=== PATIENT | male | born 1995 | race Hispanic/Latino ===

== ENCOUNTER 2018-09-30 16:54 | Observation (INO) | payer SELFPAY ==
[2018-09-30 17:38] LABS: BASO % 0.6 % (0.0-2.0); EOS # 0.1 K/uL (0.0-0.7); EOS % 0.8 % (0.0-4.0); HEMOGLOBIN 14.7 g/dL (12.0-18.0); LYMPH # 1.6 K/uL (1.0-4.3); LYMPH % 22.9 % (20.0-40.0); MEAN CELL VOLUME 92.1 fL (80.0-94.0); MEAN CORPUSCULAR HEMOGLOBIN 32.4 pg (27.0-31.0); MEAN CORPUSCULAR HGB CONC 35.1 g/dL (33.0-37.0); MEAN PLATELET VOLUME 7.9 fL (7.2-11.7); MONO # 1.1 K/uL (0.0-0.8); MONO % 16.3 % (0.0-10.0); NEUT # 4.2 K/uL (1.8-7.0); NEUT % 59.4 % (50.0-75.0); NRBC % 0.2 % (0.0-2.0); RBC 4.55 Mil/uL (4.40-5.90); RED CELL DISTRIBUTION WIDTH 12.6 % (11.5-14.5)
[2018-09-30 18:00] LABS: ALB/GLOB RATIO 1.4 (1.0-2.1); ALBUMIN 4.5 g/dL (3.5-5.0); ALT/SGPT 27 U/L (21-72); AST/SGOT 38 U/L (17-59); BLOOD UREA NITROGEN 12 mg/dL (9-20); CALCIUM 9.1 mg/dl (8.6-10.4); GFR NON-AFRICAN AMERICAN > 60
[2018-09-30] MEDS ORDERED: Piperacillin/Tazobact 3.375 GM in Sodium Chloride 100 ML IVPB STA (18:11)
[2018-09-30] MEDS ORDERED: Piperacillin/Tazobact 3.375 gm 100 ML IVPB ONE (18:20)
[2018-09-30] MEDS ORDERED: Vancomycin 1 GM 1 GM/250 ML BAG IVPB ONE (18:20)
[2018-09-30 18:35] LABS: BARBITURATES, UR NEGATIVE (NEGATIVE); BENZODIAZEPINES, UR NEGATIVE (NEGATIVE); PHENCYCLIDINE, UR NEGATIVE (NEGATIVE)
--- NOTE | 2018-09-30 18:40 | C.PDOC ---
History Of Present Illness 23 year old male presents to ED with complaint of increased swelling and redness to the left arm. Patient states he injected heroin into the dorsal aspect of his left hand and noticed over a day and half ago that the swelling was increased and moved shelter up his forearm. Patient denies fever. Time Seen by Provider: 09/30/18 17:07 Chief Complaint (Nursing): Upper Extremity Problem/Injury History Per: Patient History/Exam Limitations: no limitations Onset/Duration Of Symptoms: Days (1) Current Symptoms Are (Timing): Still Present Past Medical History Reviewed: Historical Data, Nursing Documentation, Vital Signs Vital Signs: Last Vital Signs Temp 98.6 F 09/30/18 17:00 Pulse 97 H 09/30/18 17:00 Resp 20 09/30/18 17:00 BP 128/78 09/30/18 17:00 Pulse Ox 97 09/30/18 17:00 - Medical History PMH: No Chronic Diseases Surgical History: No Surg Hx Family History: States: Unknown Family Hx - Social History Hx Alcohol Use: No Hx Substance Use: Yes - Immunization History Hx Tetanus Toxoid Vaccination: No Hx Influenza Vaccination: No Hx Pneumococcal Vaccination: No Review Of Systems Constitutional: Negative for: Fever, Chills, Weakness Cardiovascular: Negative for: Chest Pain Respiratory: Negative for: Cough, Shortness of Breath Gastrointestinal: Negative for: Nausea, Vomiting Musculoskeletal: Positive for: Arm Pain (swelling and redness on the left arm) Neurological: Negative for: Weakness, Numbness, Dizziness Physical Exam - Physical Exam Appears: Well, Non-toxic, No Acute Distress Skin: Normal Color, Warm, Dry Head: Atraumatic, Normacephalic Neck: Normal ROM, Supple Chest: Symmetrical, No Deformity Cardiovascular: Rhythm Regular Respiratory: Normal Breath Sounds Gastrointestinal/Abdominal: Soft, No Tenderness Extremity: Tenderness (Left upper forearm and wrist), Capillary Refill (<2 seconds), Swelling (redness to the left upper extremity in the distal forearm portion), Other (multiple trackmarks along the upper extremities bilaterally) Extremity: Left: Limited ROM To Joint (minimal ROM to the wrist secondary to pain and swelling) Pulses: Left Radial: Normal, Right Radial: Normal Neurological/Psych: Oriented x3, Normal Speech, Normal Cognition ED Course And Treatment - Laboratory Results Result Diagrams: 09/30/18 17:32 09/30/18 17:32 Lab Results: Total Bilirubin 0.6 mg/dL (0.2-1.3) 09/30/18 17:32 AST 38 U/L (17-59) 09/30/18 17:32 ALT 27 U/L (21-72) 09/30/18 17:32 Alkaline Phosphatase 91 U/L (38-126) 09/30/18 17:32 Total Protein 7.7 g/dL (6.3-8.3) 09/30/18 17:32 Albumin 4.5 g/dL (3.5-5.0) 09/30/18 17:32 Globulin 3.2 gm/dL (2.2-3.9) 09/30/18 17:32 Albumin/Globulin Ratio 1.4 (1.0-2.1) 09/30/18 17:32 O2 Sat by Pulse Oximetry: 97 (RA) Progress Note: 1810: Spoke with . Agreed to accept patient. Medical Decision Making Medical Decision Making: Impression: Swelling and erythema to the Left forearm and wrist Plan: Left Hand X-ray and left wrist X-ray Labs ordered with drug screen and blood culture Patient given vancomycin IVPB and Zosyn IVPB - Scribe Statement The provider has reviewed the documentation as recorded by the Scribe (Anu Martinez) All medical record entries made by the Scribe were at my direction and personally dictated by me. I have reviewed the chart and agree that the record accurately reflects my personal performance of the history, physical exam, medical decision making, and the department course for this patient. I have also personally directed, reviewed, and agree with the discharge instructions and disposition.
[2018-09-30 18:45] LABS: OPIATES, UR POSITIVE (NEGATIVE)
--- NOTE | 2018-09-30 19:44 | CP.PCM.HP ---
<Richy Bansal - Last Filed: 10/01/18 00:35> History of Present Illness - History of Present Illness History of Present Illness: PGY-1 History and Physical [address] Loyola Patient is a 23 year old male with no known PMHx, social history positive for IV heroin and cocaine use, who presents with 2 days of left hand pain and swelling. Patient states being clean for 6 months and relapsing 2 days ago (injected into left hand at area of swelling), prior to noticing his current presenting sympt oms. Patient denies any history of cellulitis or skin abscess. He states first noticing pain 2 days ago, but today the pain and swelling became worse, prompting patient to present to ER. Pt endorses some numbness and tingling in fingers though does still have some sensation. Pain extends proximally to wrist, but not proximally toward the elbow. He does state having some difficulty moving his wrist. Pt currently denies withdrawal symptoms including n/v/d, denies palpitations, chest pain, headache, dizziness. Medical Hx: Denies Surgical Hx: Denies Allergies: Denies Social: IV drug user (heroin, cocaine), 1ppd smoker, denies ETOH. Moved to from [place] today. Currently unemployed. Family Hx: Denies Medications: None PMD: None Code: Full Code Present on Admission - Present on Admission Any Indicators Present on Admission: No Review of Systems - Constitutional Constitutional: absent: Chills, Fatigue, Fever - EENT Nose/Mouth/Throat: absent: Nasal Congestion, Post Nasal Drip - Cardiovascular Cardiovascular: absent: Chest Pain, Dyspnea, Palpitations - Respiratory Respiratory: absent: Cough, Dyspnea, Wheezing - Gastrointestinal Gastrointestinal: absent: Abdominal Pain, Diarrhea, Nausea, Vomiting - Genitourinary Genitourinary: absent: Dysuria, Hematuria - Musculoskeletal Musculoskeletal: Limited Range of Motion (L wrist decreased ROM). absent: Myalgias - Neurological Neurological: Numbness, Paresthesias. absent: Confusion, Dizziness, Radicular Pain - Psychiatric Psychiatric: absent: Anxiety, Depression - Hematologic/Lymphatic Hematologic: absent: Easy Bleeding, Easy Bruising Past Patient History - Past Social History Smoking Status: Heavy Smoker > 10 Cigarettes Daily - PSYCHIATRIC Hx Substance Use: Yes - SURGICAL HISTORY Hx Surgeries: No Meds Allergies/Adverse Reactions: Allergies Allergy/AdvReac Type Severity Reaction Status Date / Time No Known Allergies Allergy Verified 09/30/18 17:04 Physical Exam - Constitutional Appears: Non-toxic, No Acute Distress - Head Exam Head Exam: ATRAUMATIC, NORMOCEPHALIC - Eye Exam Eye Exam: EOMI, Normal appearance - ENT Exam ENT Exam: Mucous Membranes Moist - Respiratory Exam Respiratory Exam: Clear to Auscultation Bilateral, NORMAL BREATHING PATTERN. absent: Rhonchi, Wheezes - Cardiovascular Exam Cardiovascular Exam: REGULAR RHYTHM, +S1, +S2 - GI/Abdominal Exam GI & Abdominal Exam: Normal Bowel Sounds, Soft. absent: Tenderness - Extremities Exam Additional comments: L hand and wrist erythema and swelling. Tender to palpation. Decreased L wrist ROM. Reported decreased, but still intact sensation of L hand and fingers. Distal UE pulses intact b/l. - Neurological Exam Neurological exam: Alert, CN II-XII Intact, Oriented x3 - Psychiatric Exam Psychiatric exam: Normal Affect, Normal Mood - Skin Skin Exam: Dry, Intact Results - Vital Signs Recent Vital Signs: Last Vital Signs Temp 98.6 F 09/30/18 17:00 Pulse 97 H 09/30/18 17:00 Resp 20 09/30/18 17:00 BP 128/78 09/30/18 17:00 Pulse Ox 97 09/30/18 18:55 - Labs Result Diagrams: 09/30/18 17:32 09/30/18 17:32 Labs: Laboratory Results - last 24 hr 09/30/18 09/30/18 09/30/18 17:32 17:32 18:14 WBC 7.0 RBC 4.55 Hgb 14.7 Hct 41.9 MCV 92.1 MCH 32.4 H MCHC 35.1 RDW 12.6 Plt Count 331 MPV 7.9 Neut % (Auto) 59.4 Lymph % (Auto) 22.9 Divide % (Auto) 16.3 H Eos % (Auto) 0.8 Baso % (Auto) 0.6 Neut # (Auto) 4.2 Lymph # (Auto) 1.6 Divide # (Auto) 1.1 H Eos # (Auto) 0.1 Baso # (Auto) 0.0 Sodium 136 Potassium 3.5 L Chloride 96 L Carbon Dioxide 30 Anion Gap 13 BUN 12 Creatinine 0.9 Est GFR ( Amer) > 60 Est GFR (Non-Af Amer) > 60 Random Glucose 107 Calcium 9.1 Total Bilirubin 0.6 AST 38 ALT 27 Alkaline Phosphatase 91 Total Protein 7.7 Albumin 4.5 Globulin 3.2 Albumin/Globulin Ratio 1.4 Urine Opiates Screen Positive H Urine Methadone Screen Negative Ur Barbiturates Screen Negative Ur Phencyclidine Scrn Negative Ur Amphetamines Screen Negative U Benzodiazepines Scrn Negative U Oth Cocaine Metabols Positive H U Cannabinoids Screen Positive H Assessment & Plan - Assessment and Plan (Free Text) Assessment: Left upper extremity cellulitis likely 2/2 IVDU. Consider possible abscess. -Vancomycin 1gm IV Q12 -Rocephin 1 gm IV daily -Swelling demarcated with surgical marker - follow changes daily -Toradol 15 mg IV Q6 prn mod pain -CXR L hand/wrist 09/30 - visible soft tissue edema without other obvious deformity, f/u official read History IVDU -Patient not reporting withdrawal sx - no intervention at this time as patient has just relapse, likely will not withdraw at this time PPx: DVT ppx - Heparin 5000 U SC Q8 Assessment and plan d/w Dr. Milla Bansal, PGY-1 <Kasi Loyola P - Last Filed: 10/01/18 08:16> Results - Vital Signs Recent Vital Signs: Last Vital Signs Temp 97.4 F L 10/01/18 07:24 Pulse 75 10/01/18 07:24 Resp 20 10/01/18 07:24 BP 116/71 10/01/18 07:24 Pulse Ox 97 10/01/18 07:24 - Labs Result Diagrams: 10/01/18 06:30 10/01/18 06:30 Labs: Laboratory Results - last 24 hr 09/30/18 09/30/18 09/30/18 17:32 17:32 18:14 WBC 7.0 RBC 4.55 Hgb 14.7 Hct 41.9 MCV 92.1 MCH 32.4 H MCHC 35.1 RDW 12.6 Plt Count 331 MPV 7.9 Neut % (Auto) 59.4 Lymph % (Auto) 22.9 Divide % (Auto) 16.3 H Eos % (Auto) 0.8 Baso % (Auto) 0.6 Neut # (Auto) 4.2 Lymph # (Auto) 1.6 Divide # (Auto) 1.1 H Eos # (Auto) 0.1 Baso # (Auto) 0.0 Sodium 136 Potassium 3.5 L Chloride 96 L Carbon Dioxide 30 Anion Gap 13 BUN 12 Creatinine 0.9 Est GFR ( Amer) > 60 Est GFR (Non-Af Amer) > 60 Random Glucose 107 Calcium 9.1 Total Bilirubin 0.6 AST 38 ALT 27 Alkaline Phosphatase 91 Total Protein 7.7 Albumin 4.5 Globulin 3.2 Albumin/Globulin Ratio 1.4 Urine Opiates Screen Positive H Urine Methadone Screen Negative Ur Barbiturates Screen Negative Ur Phencyclidine Scrn Negative Ur Amphetamines Screen Negative U Benzodiazepines Scrn Negative U Oth Cocaine Metabols Positive H U Cannabinoids Screen Positive H 10/01/18 10/01/18 06:30 06:30 WBC 6.7 RBC 4.53 Hgb 14.8 Hct 42.3 MCV 93.4 MCH 32.8 H MCHC 35.1 RDW 12.9 Plt Count 313 MPV 8.6 Neut % (Auto) 62.2 Lymph % (Auto) 19.0 L Divide % (Auto) 17.1 H Eos % (Auto) 1.4 Baso % (Auto) 0.3 Neut # (Auto) 4.2 Lymph # (Auto) 1.3 Divide # (Auto) 1.1 H Eos # (Auto) 0.1 Baso # (Auto) 0.0 Sodium 136 Potassium 3.4 L Chloride 98 Carbon Dioxide 27 Anion Gap 14 BUN 11 Creatinine 1.0 Est GFR ( Amer) > 60 Est GFR (Non-Af Amer) > 60 Random Glucose 109 Calcium 9.1 Total Bilirubin 0.8 AST 22 ALT 31 Alkaline Phosphatase 82 Total Protein 7.2 Albumin 4.2 Globulin 3.0 Albumin/Globulin Ratio 1.4 Urine Opiates Screen Urine Methadone Screen Ur Barbiturates Screen Ur Phencyclidine Scrn Ur Amphetamines Screen U Benzodiazepines Scrn U Oth Cocaine Metabols U Cannabinoids Screen Attending/Attestation - Attestation I have personally seen and examined this patient.: Yes I have fully participated in the care of the patient.: Yes I have reviewed all pertinent clinical information: Yes Notes (Text): 10/01/18 08:15 left arm/hand cellulitis, no pointing or fluctuation noticed. IV vanco/rocephin, toradol, counselled about IVDA/substance abuse, he had been clean for 6 months, started 2 days prior so unlikely to go into withdrawal.
[2018-10-01 06:54] LABS: ALB/GLOB RATIO 1.4 (1.0-2.1); ALBUMIN 4.2 g/dL (3.5-5.0); ALT/SGPT 31 U/L (21-72); AST/SGOT 22 U/L (17-59); BLOOD UREA NITROGEN 11 mg/dL (9-20); CALCIUM 9.1 mg/dl (8.6-10.4); GFR NON-AFRICAN AMERICAN > 60
[2018-10-01 07:01] LABS: BASO % 0.3 % (0.0-2.0); EOS # 0.1 K/uL (0.0-0.7); EOS % 1.4 % (0.0-4.0); HEMOGLOBIN 14.8 g/dL (12.0-18.0); LYMPH # 1.3 K/uL (1.0-4.3); MEAN CELL VOLUME 93.4 fL (80.0-94.0); MEAN CORPUSCULAR HEMOGLOBIN 32.8 pg (27.0-31.0); MEAN CORPUSCULAR HGB CONC 35.1 g/dL (33.0-37.0); MEAN PLATELET VOLUME 8.6 fL (7.2-11.7); MONO # 1.1 K/uL (0.0-0.8); MONO % 17.1 % (0.0-10.0); NEUT # 4.2 K/uL (1.8-7.0); NEUT % 62.2 % (50.0-75.0); NRBC % 0.1 % (0.0-2.0); RBC 4.53 Mil/uL (4.40-5.90); RED CELL DISTRIBUTION WIDTH 12.9 % (11.5-14.5); WHITE BLOOD COUNT 6.7 K/uL (4.8-10.8)
[2018-10-01 07:25] VITALS: RESP 20
--- NOTE | 2018-10-01 07:25 | CP.PCM.PN ---
<Marciano Shahid - Last Filed: 10/01/18 18:21> Subjective - Date & Time of Evaluation Date of Evaluation: 10/01/18 Time of Evaluation: 07:25 - Subjective Subjective: Progress note for Hospitalist service Patient seen and examined at bedside. He states that he injected into his left hand 2 day ago and subsequently developed swelling, redness and pain to his left hand and forearm. He admits to using IV heroin and cocaine, after he recently relapsed 2 days ago. He states he used about 2 bags at that time. He started using IV heroin and cocaine at age 20, max of 10 bags daily. He denies fevers, chills, chest pain, shortness of breath, headache, dizziness, palpitation, abdominal pain, nausea, vomiting, diarrhea, constipation, dysuria, leg pain. He denies prior infections from IV drug use in the past. Objective - Vital Signs/Intake and Output Vital Signs (last 24 hours): Temp Pulse Resp BP Pulse Ox 97.4 F L 75 20 116/71 97 10/01/18 07:24 10/01/18 07:24 10/01/18 07:24 10/01/18 07:24 10/01/18 07:24 Intake and Output: 10/01/18 10/01/18 06:59 18:59 Intake Total 200 Balance 200 - Medications Medications: Current Medications Acetaminophen (Tylenol 325mg Tab) 650 mg PO Q6 PRN PRN Reason: Pain, Mild (1-3) Heparin Sodium (Porcine) (Heparin) 5,000 units SC Q8 [facility] Last Admin: 10/01/18 06:45 Dose: 5,000 units Ceftriaxone Sodium 1 gm/ (Sodium Chloride) 100 mls @ 100 mls/hr IVPB DAILY RI[facility]; Protocol Vancomycin HCl 1,000 mg/ (Sodium Chloride) 250 mls @ 166.6 mls/hr IVPB Q12H RILEY; Protocol Last Admin: 10/01/18 06:46 Dose: 166.6 mls/hr Ketorolac Tromethamine (Toradol) 15 mg IVP Q6 PRN PRN Reason: Pain, moderate (4-7) Pantoprazole Sodium (Protonix Ec Tab) 40 mg PO DAILY RILEY - Labs Labs: 10/01/18 06:30 10/01/18 06:30 - Constitutional Appears: Non-toxic, No Acute Distress - Head Exam Head Exam: ATRAUMATIC, NORMOCEPHALIC - Eye Exam Eye Exam: EOMI, PERRL - ENT Exam ENT Exam: Mucous Membranes Moist - Neck Exam Neck Exam: Full ROM. absent: Tenderness - Respiratory Exam Respiratory Exam: Clear to Ausculation Bilateral, NORMAL BREATHING PATTERN. absent: Rales, Rhonchi, Wheezes, Respiratory Distress, Stridor - Cardiovascular Exam Cardiovascular Exam: REGULAR RHYTHM, +S1, +S2. absent: Gallop, Rubs, Murmur - GI/Abdominal Exam GI & Abdominal Exam: Soft, Normal Bowel Sounds. absent: Distended, Firm, Gu arding, Rigid, Tenderness, Organomegaly - Extremities Exam Extremities Exam: Normal Capillary Refill. absent: Calf Tenderness, Pedal Edema Additional comments: Left hand: erythema, edema and tenderness of left hand and left forearm, warm to touch, tendons tender to touch Unable to flex and extend wrist secondary to pain and swelling. tenderness along left forearm as well. Right hand and forearm: nontender, nonerythematous, no edema. - Neurological Exam Neurological Exam: Alert, Awake, Oriented x3 - Psychiatric Exam Psychiatric exam: Normal Affect, Normal Mood - Skin Skin Exam: Dry, Intact, Warm Assessment and Plan - Assessment and Plan (Free Text) Assessment: 23 year old male with history of IV drug use who present for cellulitis of left hand and forearm. Plan: Cellulitis of left hand and forearm Concern for tenosynovitis Hand surgery Dr. Villela consulted, help appreciated Recommend IV antibiotics. no surgical intervention at this time. Left hand XR: no fracture/dislocation. no cortical destructive changes. no radioopaque foreign bodies. Left wrist XR: soft tissue swelling, consistent with cellulitis. no radioopaque foreign body noted. Afebrile, no leukocytosis Tylenol 650mg Q6 PRN Rocephin 1g IV Vancomycin 1g BID Toradol 15mg Q6 PRN Blood cultures no growth x24 hours History of IV drug use No withdrawal symptoms at this time Will need further counseling and outpatient follow up for sobriety UDS positive for cocaine, cannabinoids and opiates Hypokalemia K 3.4, repleted Prophylaxis: Heparin 5000 units SC Q8 SCDs Protonix 40mg Regular diet Case discussed with Dr. Celeste Shahid, PGY1 <Leslye Alonso V - Last Filed: 10/01/18 20:00> Objective - Vital Signs/Intake and Output Vital Signs (last 24 hours): Temp Pulse Resp BP Pulse Ox 98.2 F 66 20 103/63 96 10/01/18 15:00 10/01/18 15:00 10/01/18 15:00 10/01/18 15:00 10/01/18 15:00 - Medications Medications: Current Medications Acetaminophen (Tylenol 325mg Tab) 650 mg PO Q6 PRN PRN Reason: Pain, Mild (1-3) Heparin Sodium (Porcine) (Heparin) 5,000 units SC Q8 RILEY Last Admin: 10/01/18 14:19 Dose: 5,000 units Ceftriaxone Sodium 1 gm/ (Sodium Chloride) 100 mls @ 100 mls/hr IVPB DAILY RILEY; Protocol Last Admin: 10/01/18 09:47 Dose: 100 mls/hr Vancomycin HCl 1,000 mg/ (Sodium Chloride) 250 mls @ 166.6 mls/hr IVPB Q12H RILEY; Protocol Last Admin: 10/01/18 18:15 Dose: 166.6 mls/hr Ketorolac Tromethamine (Toradol) 15 mg IVP Q6 PRN PRN Reason: Pain, moderate (4-7) Last Admin: 10/01/18 10:18 Dose: 15 mg Pantoprazole Sodium (Protonix Ec Tab) 40 mg PO DAILY [facility]LEY Last Admin: 10/01/18 09:47 Dose: 40 mg - Labs Labs: 10/01/18 06:30 10/01/18 06:30 Attending/Attestation - Attestation I have personally seen and examined this patient.: Yes I have fully participated in the care of the patient.: Yes I have reviewed all pertinent clinical information, including history, physical exam and plan: Yes Notes (Text): This is a 23-year-old male with prior history of heroin abuse, cocaine abuse noted that he when he was visiting friends and [place] he relapsed and used heroin and cocaine and injected into his left upper extremity. Patient is prior cellulitis and swelling was outlined on admission. Cellulitis over the forearm is improving however it is noted that he is swelling across the back and front of his hands pulses are intact he does have some tenderness over the tendons that was possibly concerning for tenosynovitis we did consult hand surgery for further evaluation he notes no necessary of surgical intervention. We will continue on IV antibiotics to see improvement of this with the swelling and the cellulitis. Patient is fully aware of the adverse effects of heroin and cocaine. Including but not limited to cardiac arrhythmia. He was strongly reemphasize sobriety given his young age. Cellulitis of left hand and forearm Left Hand Pain Left Hand Swelling Assessment/Plan * Hand surgery Dr. Villela consulted, help appreciated * Recommend IV antibiotics. no surgical intervention at this time. * Left hand XR: no fracture/dislocation. no cortical destructive changes. no radioopaque foreign bodies. * Left wrist XR: soft tissue swelling, consistent with cellulitis. no radioopaque foreign body noted. * Afebrile, no leukocytosis * Tylenol 650mg Q6 PRN * Rocephin 1g IV daily * Vancomycin 1g IVPB Q12H * Toradol 15mg Q6 PRN pain * Blood cultures no growth x24 hours History of IV drug use Assessment/Plan * No withdrawal symptoms at this time * Will need further counseling and outpatient follow up for sobriety * UDS positive for cocaine, cannabinoids and opiates Hypokalemia Assessment/Plan * K 3.4, repleted Prophylaxis: * Heparin 5000 units SC Q8 * SCDs * Protonix 40mg PO daily * Regular diet * Bacid 1 tab PO BID
[2018-10-01] MEDS ORDERED: Potassium Chloride 20 mEq ER Tab PO ONE (07:45)
[2018-10-01] MEDS: Pantoprazole 40 mg EC Tab PO SCH (09:47)
--- NOTE | 2018-10-01 09:53 | RAD ---
Date of service: 09/30/2018 PROCEDURE: Left Wrist Radiographs. HISTORY: Left arm cellulitis in a patient with history of IVDA-? FB COMPARISON: Correlation made with radiographs of the left hand FINDINGS: BONES: Normal. No fracture. No obvious cortical destructive changes JOINTS: Normal. No dislocation. SOFT TISSUES: There appears to be mild dorsal soft tissue swelling consistent with this patient's history of cellulitis. No subcutaneous emphysema OTHER FINDINGS: No radiopaque foreign bodies are identified IMPRESSION: Soft tissue swelling consistent with cellulitis. No radiopaque foreign bodies are identified
--- NOTE | 2018-10-01 09:57 | RAD ---
PROCEDURE: Left Hand Radiographs. HISTORY: h/o IVDA - ? FB COMPARISON: Correlation made with concurrent radiographs of the left wrist FINDINGS: BONES: Normal. No fracture. No cortical destructive changes are seen. JOINTS: Normal. No osteoarthritic changes. SOFT TISSUES: There is dorsal soft tissue swelling consistent with this patient's history of cellulitis. No evidence of subcutaneous emphysema OTHER FINDINGS: No radiopaque foreign bodies are identified IMPRESSION: No evidence of acute displaced fracture nor dislocation. No cortical destructive changes. No radiopaque foreign bodies.
--- NOTE | 2018-10-01 12:42 | CP.PCM.CON ---
History of Present Illness - History of Present Illness History of Present Illness: Consult note for Dr. Villela. HPI: 23 year old male with history of IVDA presents with L hand and forearm redness, swelling and pain after injecting drugs to affected area 2 days ago. Patient states pain is 8/10 and located to dorsum of hand. Pain worsens with movement. Denies fever, chills, numbness, tingling, nausea, vomiting, chest pain and shortness of breath. L Wrist XRay shows soft tissue swelling consistent with cellulitis. Denies any previous hx of cellulitis. Medical Hx: Denies Surgical Hx: Denies Allergies: Denies Social: IV drug user (heroin, cocaine), 1ppd smoker for 10 years, denies ETOH. Currently unemployed. Family Hx: Denies Medications: None Review of Systems - Review of Systems All systems: reviewed and no additional remarkable complaints except (as per HPI) Past Patient History - Past Social History Smoking Status: Heavy Smoker > 10 Cigarettes Daily - PSYCHIATRIC Hx Substance Use: Yes - SURGICAL HISTORY Hx Surgeries: No Meds Allergies/Adverse Reactions: Allergies Allergy/AdvReac Type Severity Reaction Status Date / Time No Known Allergies Allergy Verified 09/30/18 17:04 - Medications Medications: Current Medications Acetaminophen (Tylenol 325mg Tab) 650 mg PO Q6 PRN PRN Reason: Pain, Mild (1-3) Heparin Sodium (Porcine) (Heparin) 5,000 units SC Q8 [facility] Last Admin: 10/01/18 06:45 Dose: 5,000 units Ceftriaxone Sodium 1 gm/ (Sodium Chloride) 100 mls @ 100 mls/hr IVPB DAILY [facility]; Protocol Last Admin: 10/01/18 09:47 Dose: 100 mls/hr Vancomycin HCl 1,000 mg/ (Sodium Chloride) 250 mls @ 166.6 mls/hr IVPB Q12H [facility]; Protocol Last Admin: 10/01/18 06:46 Dose: 166.6 mls/hr Ketorolac Tromethamine (Toradol) 15 mg IVP Q6 PRN PRN Reason: Pain, moderate (4-7) Last Admin: 10/01/18 10:18 Dose: 15 mg Pantoprazole Sodium (Protonix Ec Tab) 40 mg PO DAILY [facility] Last Admin: 10/01/18 09:47 Dose: 40 mg Physical Exam - Constitutional Appears: Non-toxic, No Acute Distress, Unkempt, Other (malodorous) - Head Exam Head Exam: ATRAUMATIC, NORMOCEPHALIC - Eye Exam Eye Exam: Normal appearance - ENT Exam ENT Exam: Mucous Membranes Moist - Neck Exam Neck exam: Positive for: Normal Inspection - Respiratory Exam Respiratory Exam: Clear to Auscultation Bilateral, NORMAL BREATHING PATTERN. absent: Rales, Rhonchi, Wheezes, Respiratory Distress - Cardiovascular Exam Cardiovascular Exam: REGULAR RHYTHM, +S1, +S2. absent: Tachycardia - GI/Abdominal Exam GI & Abdominal Exam: Normal Bowel Sounds, Soft. absent: Distended, Firm, Guarding, Rebound, Rigid, Tenderness - Extremities Exam Additional comments: 1+ non-pitting edema extending from L hand to forearm, mild erythema, + tenderness to palpation. Cap refill less than 2 seconds, strong radial pulse, fingertips are warm, sensation intact. 5/5 muscle strength to L fingers. Flexion and extension of L wrist is limited secondary to pain and edema. - Neurological Exam Neurological exam: Alert, Oriented x3 - Psychiatric Exam Psychiatric exam: Normal Affect, Normal Mood - Skin Skin Exam: Dry, Intact, Warm Additional comments: Track conde to the 4th metacarpal of the left arm and bilateral antecubital fossa. Excoriations bilateral upper arms Results - Vital Signs Recent Vital Signs: Last Vital Signs Temp 97.4 F L 10/01/18 07:24 Pulse 75 10/01/18 07:24 Resp 20 10/01/18 07:24 BP 116/71 10/01/18 07:24 Pulse Ox 97 10/01/18 07:24 - Labs Result Diagrams: 10/01/18 06:30 10/01/18 06:30 Labs: Laboratory Results - last 24 hr 09/30/18 09/30/18 09/30/18 17:32 17:32 18:14 WBC 7.0 RBC 4.55 Hgb 14.7 Hct 41.9 MCV 92.1 MCH 32.4 H MCHC 35.1 RDW 12.6 Plt Count 331 MPV 7.9 Neut % (Auto) 59.4 Lymph % (Auto) 22.9 Humphreys % (Auto) 16.3 H Eos % (Auto) 0.8 Baso % (Auto) 0.6 Neut # (Auto) 4.2 Lymph # (Auto) 1.6 Humphreys # (Auto) 1.1 H Eos # (Auto) 0.1 Baso # (Auto) 0.0 Sodium 136 Potassium 3.5 L Chloride 96 L Carbon Dioxide 30 Anion Gap 13 BUN 12 Creatinine 0.9 Est GFR ( Amer) > 60 Est GFR (Non-Af Amer) > 60 Random Glucose 107 Calcium 9.1 Phosphorus Magnesium Total Bilirubin 0.6 AST 38 ALT 27 Alkaline Phosphatase 91 Total Protein 7.7 Albumin 4.5 Globulin 3.2 Albumin/Globulin Ratio 1.4 Urine Opiates Screen Positive H Urine Methadone Screen Negative Ur Barbiturates Screen Negative Ur Phencyclidine Scrn Negative Ur Amphetamines Screen Negative U Benzodiazepines Scrn Negative U Oth Cocaine Metabols Positive H U Cannabinoids Screen Positive H 10/01/18 10/01/18 06:30 06:30 WBC 6.7 RBC 4.53 Hgb 14.8 Hct 42.3 MCV 93.4 MCH 32.8 H MCHC 35.1 RDW 12.9 Plt Count 313 MPV 8.6 Neut % (Auto) 62.2 Lymph % (Auto) 19.0 L Humphreys % (Auto) 17.1 H Eos % (Auto) 1.4 Baso % (Auto) 0.3 Neut # (Auto) 4.2 Lymph # (Auto) 1.3 Humphreys # (Auto) 1.1 H Eos # (Auto) 0.1 Baso # (Auto) 0.0 Sodium 136 Potassium 3.4 L Chloride 98 Carbon Dioxide 27 Anion Gap 14 BUN 11 Creatinine 1.0 Est GFR ( Amer) > 60 Est GFR (Non-Af Amer) > 60 Random Glucose 109 Calcium 9.1 Phosphorus 3.7 Magnesium 2.3 Total Bilirubin 0.8 AST 22 ALT 31 Alkaline Phosphatase 82 Total Protein 7.2 Albumin 4.2 Globulin 3.0 Albumin/Globulin Ratio 1.4 Urine Opiates Screen Urine Methadone Screen Ur Barbiturates Screen Ur Phencyclidine Scrn Ur Amphetamines Screen U Benzodiazepines Scrn U Oth Cocaine Metabols U Cannabinoids Screen Assessment & Plan - Assessment and Plan (Free Text) Assessment: 23 year old male with L hand cellulitis Plan: Continue IV abx Neurovascular intact No surgical intervention at this time Further recs as per Dr. Villela. Gem Love, PGY1
[2018-10-01] MEDS: Lactobacillus Acidophilus 500 MU Cap PO SCH (21:24)
[2018-10-02 00:04] VITALS: O2SAT 98
[2018-10-02 07:35] VITALS: BP 116/70; PULSE 70; TEMP 97.9
[2018-10-02 07:41] LABS: BASO % 0.1 % (0.0-2.0); EOS # 0.1 K/uL (0.0-0.7); EOS % 1.7 % (0.0-4.0); HEMOGLOBIN 14.3 g/dL (12.0-18.0); LYMPH # 1.3 K/uL (1.0-4.3); LYMPH % 19.7 % (20.0-40.0); MEAN CELL VOLUME 94.7 fL (80.0-94.0); MEAN CORPUSCULAR HEMOGLOBIN 32.6 pg (27.0-31.0); MEAN CORPUSCULAR HGB CONC 34.4 g/dL (33.0-37.0); MEAN PLATELET VOLUME 8.7 fL (7.2-11.7); MONO # 0.8 K/uL (0.0-0.8); MONO % 12.2 % (0.0-10.0); NEUT # 4.3 K/uL (1.8-7.0); NEUT % 66.3 % (50.0-75.0); RBC 4.38 Mil/uL (4.40-5.90); RED CELL DISTRIBUTION WIDTH 13.1 % (11.5-14.5); WHITE BLOOD COUNT 6.5 K/uL (4.8-10.8)
--- NOTE | 2018-10-02 08:34 | CP.PCM.PN ---
Subjective - Date & Time of Evaluation Date of Evaluation: 10/02/18 Time of Evaluation: 06:45 - Subjective Subjective: Progress note for Dr. Villela. Patient seen and examined at bedside. No acute events overnight. Patient reports persistent L hand pain. States he has not been elevating his arm. Denies fever, chills, nausea and vomiting. Objective - Vital Signs/Intake and Output Vital Signs (last 24 hours): Temp Pulse Resp BP Pulse Ox 97.9 F 70 20 116/70 98 10/02/18 07:34 10/02/18 07:34 10/02/18 07:34 10/02/18 07:34 10/02/18 07:34 - Medications Medications: Current Medications Acetaminophen (Tylenol 325mg Tab) 650 mg PO Q6 PRN PRN Reason: Pain, Mild (1-3) Heparin Sodium (Porcine) (Heparin) 5,000 units SC Q8 [facility] Last Admin: 10/02/18 06:57 Dose: 5,000 units Ceftriaxone Sodium 1 gm/ (Sodium Chloride) 100 mls @ 100 mls/hr IVPB DAILY [facility]; Protocol Last Admin: 10/01/18 09:47 Dose: 100 mls/hr Vancomycin HCl 1,000 mg/ (Sodium Chloride) 250 mls @ 166.6 mls/hr IVPB Q12H [facility]; Protocol Last Admin: 10/02/18 06:44 Dose: 166.6 mls/hr Ketorolac Tromethamine (Toradol) 15 mg IVP Q6 PRN PRN Reason: Pain, moderate (4-7) Last Admin: 10/01/18 10:18 Dose: 15 mg Lactobacillus Acidophilus (Lactobacillus) 1 cap PO BID [facility] Last Admin: 10/01/18 21:24 Dose: 1 cap Pantoprazole Sodium (Protonix Ec Tab) 40 mg PO DAILY [facility] Last Admin: 10/01/18 09:47 Dose: 40 mg - Labs Labs: 10/02/18 06:46 10/01/18 06:30 - Additional Findings Additional findings: - Constitutional Appears: Non-toxic, No Acute Distress, Unkempt, Other (malodorous) - Head Exam Head Exam: ATRAUMATIC, NORMOCEPHALIC - Eye Exam Eye Exam: Normal appearance - Respiratory Exam Respiratory Exam: absent: Respiratory Distress - Extremities Exam Additional comments: Edema to L hand to forearm improved since yesterday, mild erythema, + tenderness to palpation. Cap refill less than 2 seconds, strong radial pulse, fingertips are warm, sensation intact. 5/5 muscle strength to L fingers. Flexion and extension of L wrist is limited secondary to pain and edema. - Neurological Exam Neurological exam: Alert, Oriented x3 - Psychiatric Exam Psychiatric exam: Normal Affect, Normal Mood - Skin Skin Exam: Dry, Intact, Warm Additional comments: Track conde along the 4th metacarpal area of the left arm and bilateral antecubital fossa. Excoriations bilateral upper arms. Tattoo noted to first inter-digital space of L hand Assessment and Plan - Assessment and Plan (Free Text) Assessment: 23 year old male with L hand cellulitis Plan: Continue IV abx Keep L hand elevated above level of heart Encourage ROM No surgical intervention at this time Further recs as per Dr. Villela. Gem Love, PGY1
--- NOTE | 2018-10-02 08:57 | CP.PCM.PN ---
Subjective - Date & Time of Evaluation Date of Evaluation: 10/02/18 Time of Evaluation: 08:00 - Subjective Subjective: Progress note for Hospitalist service Patient seen and examined at bedside. He reports improvement of pain, swelling and redness. However, the left hand pain is still bothering him. He denies fevers, chills, chest pain, shortness of breath, headache, dizziness, palpitations, abdominal pain, nausea, vomiting, diarrhea, urinary changes, leg pain. Objective - Vital Signs/Intake and Output Vital Signs (last 24 hours): Temp Pulse Resp BP Pulse Ox 97.9 F 70 20 116/70 98 10/02/18 07:34 10/02/18 07:34 10/02/18 07:34 10/02/18 07:34 10/02/18 07:34 - Medications Medications: Current Medications Acetaminophen (Tylenol 325mg Tab) 650 mg PO Q6 PRN PRN Reason: Pain, Mild (1-3) Heparin Sodium (Porcine) (Heparin) 5,000 units SC Q8 [facility] Last Admin: 10/02/18 06:57 Dose: 5,000 units Ceftriaxone Sodium 1 gm/ (Sodium Chloride) 100 mls @ 100 mls/hr IVPB DAILY [facility]; Protocol Last Admin: 10/01/18 09:47 Dose: 100 mls/hr Vancomycin HCl 1,000 mg/ (Sodium Chloride) 250 mls @ 166.6 mls/hr IVPB Q12H [facility]; Protocol Last Admin: 10/02/18 06:44 Dose: 166.6 mls/hr Ketorolac Tromethamine (Toradol) 15 mg IVP Q6 PRN PRN Reason: Pain, moderate (4-7) Last Admin: 10/01/18 10:18 Dose: 15 mg Lactobacillus Acidophilus (Lactobacillus) 1 cap PO BID [facility] Last Admin: 10/01/18 21:24 Dose: 1 cap Pantoprazole Sodium (Protonix Ec Tab) 40 mg PO DAILY [facility] Last Admin: 10/01/18 09:47 Dose: 40 mg - Labs Labs: 10/02/18 06:46 10/01/18 06:30 - Additional Findings Additional findings: - Constitutional Appears: Non-toxic, No Acute Distress - Head Exam Head Exam: ATRAUMATIC, NORMOCEPHALIC - Eye Exam Eye Exam: EOMI, PERRL - ENT Exam ENT Exam: Mucous Membranes Moist - Neck Exam Neck Exam: Full ROM. absent: Tenderness - Respiratory Exam Respiratory Exam: Clear to Ausculation Bilateral, NORMAL BREATHING PATTERN. absent: Rales, Rhonchi, Wheezes, Respiratory Distress, Stridor - Cardiovascular Exam Cardiovascular Exam: REGULAR RHYTHM, +S1, +S2. absent: Gallop, Rubs, Murmur - GI/Abdominal Exam GI & Abdominal Exam: Soft, Normal Bowel Sounds. absent: Distended, Firm, Guarding, Rigid, Tenderness, Organomegaly - Extremities Exam Extremities Exam: Normal Capillary Refill. absent: Calf Tenderness, Pedal Edema Additional comments: Left hand:edema and tenderness of left hand, warm to touch, most prominent in the dorsal first MCP. Minimal erythema noted. Previous erythematous demarcation with marker is much improved. Pt can flex and extend the hand, but with pain on active and passive motion. No tenderness along left forearm. Sensation is intact and equal, motor function is also preserved and normal. Good radial and ulnar pulse, good capillary refill. Right hand and forearm remain unremarkable, without tenderness, erythema or warmth. - Neurological Exam Neurological Exam: Alert, Awake, Oriented x3 - Psychiatric Exam Psychiatric exam: Normal Affect, Normal Mood - Skin Skin Exam: Dry, Intact, Warm Assessment and Plan - Assessment and Plan (Free Text) Assessment: 23 year old male with history of IV drug use who present for cellulitis of left hand and forearm. Plan: Cellulitis of left hand and forearm Hand surgery Dr. Villela consulted, help appreciated Recommend IV antibiotics. no surgical intervention at this time. Left hand XR: no fracture/dislocation. no cortical destructive changes. no radioopaque foreign bodies. Left wrist XR: soft tissue swelling, consistent with cellulitis. no radioopaque foreign body noted. Afebrile, no leukocytosis, not tachycardic Tylenol 650mg Q6 PRN Rocephin 1g IV Vancomycin 1g BID Toradol 15mg Q6 PRN Blood cultures no growth x24 hours History of IV drug use No withdrawal symptoms at this time Will need further counseling and outpatient follow up for sobriety UDS positive for cocaine, cannabinoids and opiates Hypokalemia, resolved Continue to monitor Prophylaxis: Heparin 5000 units SC Q8 [facility] Protonix 40mg Regular diet Case discussed with Dr. Alonso
[2018-10-02 09:07] LABS: ALB/GLOB RATIO 1.3 (1.0-2.1); ALT/SGPT 23 U/L (21-72); AST/SGOT 30 U/L (17-59); BLOOD UREA NITROGEN 14 mg/dL (9-20); GFR NON-AFRICAN AMERICAN > 60
[2018-10-02] MEDS: Lactobacillus Acidophilus 500 MU Cap PO SCH (10:14)
[2018-10-02] MEDS: Pantoprazole 40 mg EC Tab PO SCH (10:14)
--- NOTE | 2018-10-02 11:36 | CP.PCM.DIS ---
Provider - Provider Date of Admission: 09/30/18 18:12 Attending physician: Leslye Alonso DO Consults: 10/01/18 12:08 Physician Consult Routine Comment: Consulting Provider: Jono Villela Consulting Physician: Jono Villela Reason for Consult: left hand pain, tendon pain, cellulitis. Time Spent in preparation of Discharge (in minutes): 35 Diagnosis - Discharge Diagnosis (1) Cellulitis of hand Status: Acute Hospital Course - Lab Results Lab Results: Micro Results 09/30/18 17:25 Blood Blood Culture - Preliminary NO GROWTH AFTER 24 HOURS 09/30/18 18:15 Blood Blood Culture - Preliminary NO GROWTH AFTER 24 HOURS Most Recent Lab Values WBC 6.5 K/uL (4.8-10.8) 10/02/18 06:46 RBC 4.38 Mil/uL (4.40-5.90) L 10/02/18 06:46 Hgb 14.3 g/dL (12.0-18.0) 10/02/18 06:46 Hct 41.5 % (35.0-51.0) 10/02/18 06:46 MCV 94.7 fL (80.0-94.0) H 10/02/18 06:46 MCH 32.6 pg (27.0-31.0) H 10/02/18 06:46 MCHC 34.4 g/dL (33.0-37.0) 10/02/18 06:46 RDW 13.1 % (11.5-14.5) 10/02/18 06:46 Plt Count 322 K/uL (130-400) 10/02/18 06:46 MPV 8.7 fL (7.2-11.7) 10/02/18 06:46 Neut % (Auto) 66.3 % (50.0-75.0) 10/02/18 06:46 Lymph % (Auto) 19.7 % (20.0-40.0) L 10/02/18 06:46 Martin % (Auto) 12.2 % (0.0-10.0) H 10/02/18 06:46 Eos % (Auto) 1.7 % (0.0-4.0) 10/02/18 06:46 Baso % (Auto) 0.1 % (0.0-2.0) 10/02/18 06:46 Neut # (Auto) 4.3 K/uL (1.8-7.0) 10/02/18 06:46 Lymph # (Auto) 1.3 K/uL (1.0-4.3) 10/02/18 06:46 Martin # (Auto) 0.8 K/uL (0.0-0.8) 10/02/18 06:46 Eos # (Auto) 0.1 K/uL (0.0-0.7) 10/02/18 06:46 Baso # (Auto) 0.0 K/uL (0.0-0.2) 10/02/18 06:46 Sodium 137 mmol/L (132-148) 10/02/18 06:46 Potassium 3.9 mmol/L (3.6-5.2) 10/02/18 06:46 Chloride 103 mmol/L (98-107) 10/02/18 06:46 Carbon Dioxide 25 mmol/L (22-30) 10/02/18 06:46 Anion Gap 13 (10-20) 10/02/18 06:46 BUN 14 mg/dL (9-20) 10/02/18 06:46 Creatinine 0.9 mg/dL (0.8-1.5) 10/02/18 06:46 Est GFR ( Amer) > 60 10/02/18 06:46 Est GFR (Non-Af Amer) > 60 10/02/18 06:46 Random Glucose 106 mg/dL (75-110) 10/02/18 06:46 Calcium 9.0 mg/dl (8.6-10.4) 10/02/18 06:46 Phosphorus 3.2 mg/dL (2.5-4.5) 10/02/18 06:46 Magnesium 2.2 mg/dL (1.6-2.3) 10/02/18 06:46 Total Bilirubin 0.4 mg/dL (0.2-1.3) 10/02/18 06:46 AST 30 U/L (17-59) 10/02/18 06:46 ALT 23 U/L (21-72) 10/02/18 06:46 Alkaline Phosphatase 85 U/L (38-126) 10/02/18 06:46 Total Protein 7.1 g/dL (6.3-8.3) 10/02/18 06:46 Albumin 4.0 g/dL (3.5-5.0) 10/02/18 06:46 Globulin 3.1 gm/dL (2.2-3.9) 10/02/18 06:46 Albumin/Globulin Ratio 1.3 (1.0-2.1) 10/02/18 06:46 Urine Opiates Screen Positive (NEGATIVE) H 09/30/18 18:14 Urine Methadone Screen Negative (NEGATIVE) 09/30/18 18:14 Ur Barbiturates Screen Negative (NEGATIVE) 09/30/18 18:14 Ur Phencyclidine Scrn Negative (NEGATIVE) 09/30/18 18:14 Ur Amphetamines Screen Negative (NEGATIVE) 09/30/18 18:14 U Benzodiazepines Scrn Negative (NEGATIVE) 09/30/18 18:14 U Oth Cocaine Metabols Positive (NEGATIVE) H 09/30/18 18:14 U Cannabinoids Screen Positive (NEGATIVE) H 09/30/18 18:14 - Hospital Course Hospital Course: On admission: Patient is a 23 year old male with no known PMHx, social history positive for IV heroin and cocaine use, who presents with 2 days of left hand pain and swelling. Patient states being clean for 6 months and relapsing 2 days ago (injected into left hand at area of swelling), prior to noticing his current presenting symptoms. Patient denies any history of cellulitis or skin abscess. He states first noticing pain 2 days ago, but today the pain and swelling became worse, prompting patient to present to ER. Pt endorses some numbness and tingling in fingers though does still have some sensation. Pain extends proximally to wrist, but not proximally toward the elbow. He does state having some difficulty moving his wrist. Pt currently denies withdrawal symptoms including n/v/d, denies palpitations, chest pain, headache, dizziness. Hospital course: Pt started on IV antibiotics. Hand surgery consulted, no indication for surgery. Pt improved dramatically with 3 days of IV antibiotics, discharged with Doxycycline. Imaging: Left hand XR: no fracture/dislocation. no cortical destructive changes. no radioopaque foreign bodies. Left wrist XR: soft tissue swelling, consistent with cellulitis. no radioopaque foreign body noted. This is a summary of the hospital course. Please see EMR for full details. Discharge Exam - Additional Findings Additional findings: - Constitutional Appears: Non-toxic, No Acute Distress - Head Exam Head Exam: ATRAUMATIC, NORMOCEPHALIC - Eye Exam Eye Exam: EOMI, PERRL - ENT Exam ENT Exam: Mucous Membranes Moist - Neck Exam Neck Exam: Full ROM. absent: Tenderness - Respiratory Exam Respiratory Exam: Clear to Ausculation Bilateral, NORMAL BREATHING PATTERN. absent: Rales, Rhonchi, Wheezes, Respiratory Distress, Stridor - Cardiovascular Exam Cardiovascular Exam: REGULAR RHYTHM, +S1, +S2. absent: Gallop, Rubs, Murmur - GI/Abdominal Exam GI & Abdominal Exam: Soft, Normal Bowel Sounds. absent: Distended, Firm, Guarding, Rigid, Tenderness, Organomegaly - Extremities Exam Extremities Exam: Normal Capillary Refill. absent: Calf Tenderness, Pedal Edema Additional comments: Left hand:edema and tenderness of left hand, warm to touch, most prominent in the dorsal first MCP. Minimal erythema noted. Previous erythematous demarcation with marker is much improved. Pt can flex and extend the hand, but with mild pain on active and passive motion. No tenderness along left forearm. Sensation is intact and equal, motor function is also preserved and normal. Good radial and ulnar pulse, good capillary refill. Right hand and forearm remain unremarkable, without tenderness, erythema or warmth. - Neurological Exam Neurological Exam: Alert, Awake, Oriented x3 - Psychiatric Exam Psychiatric exam: Normal Affect, Normal Mood - Skin Skin Exam: Dry, Intact, Warm Discharge Plan - Discharge Medications Prescriptions: Doxycycline Hyclate 100 mg PO BID #8 capsule - Follow Up Plan Condition: GOOD Disposition: HOME/ ROUTINE Instructions: Cellulitis (Skin Infection), Adult (DC), Doxycycline Additional Instructions: Pt is medically stable for discharge home as per Dr. Alonso. Pt should take Doxycycline 100 mg PO BID for a total of 4 days, to be completed 10/06/17. Pt should follow up with PMD or [facility], call to make appt [phone]. Pt can follow up with Narcotics Anonymous for support, [phone] Should symptoms worsen, please return to the nearest Emergency Department for further evaluation. Referrals: [facility] at [facility] [Outside]
== END 2018-10-02 12:36 | disposition home or self-care (01) ==
LOC: C.ER 16:54 → C.9E 18:12 → C.5S 19:55
PROVIDERS: ADMIT Hospitalist; ATTEND Hospitalist
DX: L03.114 Cellulitis of left upper limb (principal); M25.532 Pain in left wrist; E87.6 Hypokalemia; F17.210 Nicotine dependence, cigarettes, uncomplicated; F11.10 Opioid abuse, uncomplicated; F14.10 Cocaine abuse, uncomplicated; F12.10 Cannabis abuse, uncomplicated
CPT/HCPCS: 36415; 73110; 73130; 80053; 83735; 84100; 85025; 87040; 96365; 99285; G0378; G0480; J0696; J1644; J1885; J2543; J3370; J7050

== ENCOUNTER 2018-11-13 14:42 | Emergency (ER) | payer OTHER ==
[2018-11-13 14:52] VITALS: O2SAT 100
--- NOTE | 2018-11-13 16:21 | RAD ---
Date of service: 11/13/2018 PROCEDURE: Right Wrist Radiographs. HISTORY: Swelling s/p iv heroin injuction. r/o FB/needle COMPARISON: None. TECHNIQUE: 4 views obtained. FINDINGS: BONES: Normal. No fracture. JOINTS: Normal. No dislocation. SOFT TISSUES: Normal. OTHER FINDINGS: None. IMPRESSION: Normal right wrist radiographs.
--- NOTE | 2018-11-13 16:28 | C.PDOC ---
History Of Present Illness Pt c/o right wrist swelling/redness after injecting heroin in the area 2 days ago. Time Seen by Provider: 11/13/18 15:10 Chief Complaint (Nursing): Abnormal Skin Integrity History Per: Patient Onset/Duration Of Symptoms: Days (2) Current Symptoms Are (Timing): Worse Location Of Injury: Right: Wrist Quality Of Symptoms: Swollen Severity: Moderate Additional History Per: Prior Records Past Medical History Reviewed: Historical Data, Nursing Documentation, Vital Signs Vital Signs: Last Vital Signs Temp 97.9 F 11/13/18 14:46 Pulse 93 H 11/13/18 14:46 Resp 18 11/13/18 14:46 BP 123/76 11/13/18 14:46 Pulse Ox 100 11/13/18 14:46 - Medical History PMH: No Chronic Diseases Family History: States: Unknown Family Hx - Social History Hx Alcohol Use: No Hx Substance Use: Yes (IVDU Heroin) - Immunization History Hx Tetanus Toxoid Vaccination: No Hx Influenza Vaccination: No Hx Pneumococcal Vaccination: No Review Of Systems Except As Marked, All Systems Reviewed And Found Negative. Constitutional: Negative for: Fever, Weakness Cardiovascular: Negative for: Chest Pain Respiratory: Negative for: Shortness of Breath Gastrointestinal: Negative for: Vomiting, Abdominal Pain Musculoskeletal: Negative for: Neck Pain, Arm Pain Neurological: Negative for: Weakness, Numbness Physical Exam - Physical Exam Appears: Non-toxic, No Acute Distress Head: Atraumatic, Normacephalic Eye(s): bilateral: PERRL, EOMI Neck: Normal ROM, Supple Extremity: Normal ROM, No Tenderness, Capillary Refill (wnl), Swelling (of dorsal aspect of right wrist/proximal hand with erythema) Pulses: Right Radial: Normal Neurological/Psych: Oriented x3, Normal Motor, Normal Sensation ED Course And Treatment O2 Sat by Pulse Oximetry: 100 Pulse Ox Interpretation: Normal - Other Rad Right wrist x-rays X-Ray: Viewed By Me, Read By Radiologist Interpretation: No FB. Progress Note: I explained to the patient that he requires admission for treatment with IV antibiotics, however he is not willing to stay in the hospital. He insists on leaving AMA even after I explained to him that the infection may get worse and he may lose his hand. Against Medical Advice - AMA Patient Left Against Medical Advice: The patient declines admission to the hospital and wishes to leave the Emergency Department. This action is against my medical advice. This decision was made with informed refusal. The patient was told that admission to the hospital is necessary. Explanation of the reasons why were discussed. The risks of leaving were explained to the patient and include, but are not limited to, worsening of known or currently unknown conditions, permanent disability and from undiagnosed or untreated conditions. The patient has the capacity to make this informed decision and understands my explanation of the current medical problem and risks of leaving. The patient voluntarily accepts these risks and signed an AMA form documenting our conversation. The patient was given the opportunity to ask questions and reconsider. The patient was encouraged to return to the Emergency Department at any time for further care. Disposition Counseled Patient/Family Regarding: Studies Performed, Diagnosis, Need For Followup, Rx Given - Disposition Referrals: at [facility] [Outside] Sal Yuen MD [Staff Provider] - Disposition: AGAINST MEDICAL ADVICE Disposition Time: 16:31 Condition: FAIR Additional Instructions: Follow up with a Hand specialist and/or in the clinic. Return to the ER if you change your mind, develops fever, worsening of symptoms or if you have any other concerns. Prescriptions: Cephalexin [Keflex] 500 mg PO QID #40 capsule Sulfamethoxazole/Trimethoprim [Bactrim DS 800 mg-160 mg] 1 tab PO BID #20 tab Instructions: Cellulitis (Skin Infection), Adult (DC), Leaving Against Medical Advice Forms: MD [employer] (Italian) - Clinical Impression Clinical Impression: Left against medical advice, Cellulitis of wrist, IVDU (intravenous drug user)
[2018-11-13 16:53] VITALS: BP 116/77; PULSE 88; RESP 20; TEMP 98
== END 2018-11-13 16:53 | disposition left against medical advice (07) ==
LOC: C.ER 14:42
DX: L03.113 Cellulitis of right upper limb (principal); F19.90 Other psychoactive substance use, unspecified, uncomplicated

== ENCOUNTER 2018-11-27 21:29 | Inpatient (IN) | payer OTHER ==
[2018-11-27 23:42] LABS: BASO # 0.1 K/uL (0.0-0.2); BASO % 0.6 % (0.0-2.0); EOS # 0.1 K/uL (0.0-0.7); EOS % 1.2 % (0.0-4.0); HEMOGLOBIN 13.9 g/dL (12.0-18.0); LYMPH # 1.9 K/uL (1.0-4.3); LYMPH % 21.9 % (20.0-40.0); MEAN CELL VOLUME 92.1 fL (80.0-94.0); MEAN CORPUSCULAR HEMOGLOBIN 32.3 pg (27.0-31.0); MEAN PLATELET VOLUME 7.8 fL (7.2-11.7); MONO % 11.1 % (0.0-10.0); NEUT # 5.6 K/uL (1.8-7.0); NEUT % 65.2 % (50.0-75.0); NRBC % 0.1 % (0.0-2.0); RBC 4.3 Mil/uL (4.40-5.90); RED CELL DISTRIBUTION WIDTH 13.5 % (11.5-14.5); WHITE BLOOD COUNT 8.6 K/uL (4.8-10.8)
[2018-11-27 23:45] LABS: SQUAMOUS EPITHIAL < 1 /hpf (0-5); URINE AMORPHOUS SEDIMENT RARE /ul (<OCC); URINE BACTERIA RARE (<OCC); URINE BILIRUBIN NEGATIVE (NEGATIVE); URINE BLOOD NEGATIVE (NEGATIVE); URINE CLARITY Hazy (Clear); URINE COLOR Yellow (YELLOW); URINE GLUCOSE (UA) NORMAL (Normal); URINE LEUKOCYTE ESTERASE NEG Leu/uL (Negative); URINE PROTEIN NEGATIVE (NEGATIVE); URINE UROBILINOGEN NORMAL mg/dL (0.2-1.0)
--- NOTE | 2018-11-27 23:53 | C.PDOC ---
History Of Present Illness 23 year old male presents to the ED seeking detox for heroin abuse. Patient reports using a bundle of heroin a day, has not used in the past 2-3 days feeling withdrawals. Patient also c/o mild pain to dorsum of left foot with questionable injection there. Patient denies SI/HI, hallucination, injury,fall, trauma. <Shaun Jose - Last Filed: 11/28/18 00:36> History Per: Patient History/Exam Limitations: no limitations Onset/Duration Of Symptoms: Days Current Symptoms Are (Timing): Still Present Recent travel outside of the [place]: No Additional History Per: Patient - Ankle/Foot Description Of Injury: Other <Shaun Jose - Last Filed: 11/28/18 00:36> <Alina Estrada - Last Filed: 11/28/18 02:23> Time Seen by Provider: 11/27/18 23:06 Chief Complaint (Nursing): Lower Extremity Problem/Injury Past Medical History Reviewed: Historical Data, Nursing Documentation, Vital Signs Vital Signs: Last Vital Signs Temp 98.2 F 11/27/18 21:58 Pulse 77 11/27/18 21:58 Resp 18 11/27/18 21:58 BP 137/86 11/27/18 21:58 Pulse Ox 100 11/27/18 21:58 - Medical History PMH: No Chronic Diseases Surgical History: No Surg Hx Family History: States: Unknown Family Hx - Social History Hx Alcohol Use: No Hx Substance Use: Yes (IV Heroin) - Immunization History Hx Tetanus Toxoid Vaccination: No Hx Influenza Vaccination: No Hx Pneumococcal Vaccination: No <Shaun Jose - Last Filed: 11/28/18 00:36> Vital Signs: Last Vital Signs Temp 98.2 F 11/27/18 21:58 Pulse 77 11/27/18 21:58 Resp 18 11/27/18 21:58 BP 137/86 11/27/18 21:58 Pulse Ox 100 11/28/18 00:38 <Alina Estrada - Last Filed: 11/28/18 02:23> Review Of Systems Constitutional: Negative for: Fever, Chills Respiratory: Negative for: Cough, Shortness of Breath Gastrointestinal: Negative for: Nausea, Vomiting, Abdominal Pain Musculoskeletal: Positive for: Foot Pain Skin: Negative for: Rash Neurological: Negative for: Weakness, Numbness, Headache Psych: Negative for: Depression, Suicidal ideation <DamonMehdiShaun - Last Filed: 11/28/18 00:36> Physical Exam - Physical Exam Appears: Non-toxic, Chronically Ill, Other (white male ) Skin: Normal Color, Warm, Dry Head: Atraumatic, Normacephalic Eye(s): bilateral: PERRL (dialtated pupils ), EOMI Oral Mucosa: Moist Neck: Normal ROM, Supple Chest: Symmetrical Cardiovascular: Rhythm Regular Respiratory: Normal Breath Sounds, No Rales, No Rhonchi, No Wheezing Gastrointestinal/Abdominal: Soft, No Tenderness Extremity: Normal ROM, No Tenderness, Capillary Refill (< 2 seconds), No Swelling, Other (scant lazy 3x3 cm erythema to dorsum of left foot, with no cellulitis. ) Pulses: Left Dorsalis Pedis: Normal, Right Dorsalis Pedis: Normal Neurological/Psych: Oriented x3, Normal Speech, Normal Cognition Gait: Steady <Shaun Jose E - Last Filed: 11/28/18 00:36> ED Course And Treatment - Laboratory Results Result Diagrams: 11/27/18 23:38 11/27/18 23:38 Lab Results: Urine Color Yellow (YELLOW) 11/27/18 23:38 Urine Clarity Hazy (Clear) 11/27/18 23:38 Urine pH 6.0 (5.0-8.0) 11/27/18 23:38 Ur Specific [place] 1.017 (1.003-1.030) 11/27/18 23:38 Urine Protein Negative mg/dL (NEGATIVE) 11/27/18 23:38 Urine Glucose (UA) Normal mg/dL (Normal) 11/27/18 23:38 Urine Ketones Negative mg/dL (NEGATIVE) 11/27/18 23:38 Urine Blood Negative (NEGATIVE) 11/27/18 23:38 Urine Nitrate Negative (NEGATIVE) 11/27/18 23:38 Urine Bilirubin Negative (NEGATIVE) 11/27/18 23:38 Urine Urobilinogen Normal mg/dL (0.2-1.0) 11/27/18 23:38 Ur Leukocyte Esterase Neg Stu/uL (Negative) 11/27/18 23:38 Urine WBC (Auto) 4 /hpf (0-5) 11/27/18 23:38 Urine RBC (Auto) 1 /hpf (0-3) 11/27/18 23:38 Ur Squamous Epith Cells < 1 /hpf (0-5) 11/27/18 23:38 Amorphous Sediment Rare /ul (<OCC) H 11/27/18 23:38 Urine Bacteria Rare (<OCC) 11/27/18 23:38 O2 Sat by Pulse Oximetry: 100 (On RA) Pulse Ox Interpretation: Normal <Shaun Jose - Last Filed: 11/28/18 00:36> - Laboratory Results Result Diagrams: 11/27/18 23:38 11/27/18 23:38 Lab Results: Total Bilirubin 0.3 mg/dL (0.2-1.3) 11/27/18 23:38 AST 29 U/L (17-59) 11/27/18 23:38 ALT 27 U/L (21-72) 11/27/18 23:38 Alkaline Phosphatase 92 U/L (38-126) 11/27/18 23:38 Total Protein 7.6 g/dL (6.3-8.3) 11/27/18 23:38 Albumin 4.2 g/dL (3.5-5.0) 11/27/18 23:38 Globulin 3.4 gm/dL (2.2-3.9) 11/27/18 23:38 Albumin/Globulin Ratio 1.2 (1.0-2.1) 11/27/18 23:38 Urine Color Yellow (YELLOW) 11/27/18 23:38 Urine Clarity Hazy (Clear) 11/27/18 23:38 Urine pH 6.0 (5.0-8.0) 11/27/18 23:38 Ur Specific [place] 1.017 (1.003-1.030) 11/27/18 23:38 Urine Protein Negative mg/dL (NEGATIVE) 11/27/18 23:38 Urine Glucose (UA) Normal mg/dL (Normal) 11/27/18 23:38 Urine Ketones Negative mg/dL (NEGATIVE) 11/27/18 23:38 Urine Blood Negative (NEGATIVE) 11/27/18 23:38 Urine Nitrate Negative (NEGATIVE) 11/27/18 23:38 Urine Bilirubin Negative (NEGATIVE) 11/27/18 23:38 Urine Urobilinogen Normal mg/dL (0.2-1.0) 11/27/18 23:38 Ur Leukocyte Esterase Neg Stu/uL (Negative) 11/27/18 23:38 Urine WBC (Auto) 4 /hpf (0-5) 11/27/18 23:38 Urine RBC (Auto) 1 /hpf (0-3) 11/27/18 23:38 Ur Squamous Epith Cells < 1 /hpf (0-5) 11/27/18 23:38 Amorphous Sediment Rare /ul (<OCC) H 11/27/18 23:38 Urine Bacteria Rare (<OCC) 11/27/18 23:38 <Alina Estrada - Last Filed: 11/28/18 02:23> Medical Decision Making Medical Decision Making: Plan: * Labs * UA * Crisis eval supercial irritation of dorsum L foot. no bony abnormality no cellulitis likely injects in this area 0100: pending detox eval for heroine detox signed over to overnight MD <Shaun Jose - Last Filed: 11/28/18 00:36> Disposition - Disposition Disposition Time: 00:37 <Shaun Jose - Last Filed: 11/28/18 00:36> Discussed With : Alex David Comment: acceptd the pt on his service and took over the care at 2:20 AM Doctor Will See Patient In The: ED Counseled Patient/Family Regarding: Studies Performed, Diagnosis <Alina Estrada - Last Filed: 11/28/18 02:23> - Disposition Disposition: HOSPITALIZED Condition: FAIR Forms: [facility] ([place]) - Clinical Impression Clinical Impression: Heroin abuse - Scribe Statement The provider has reviewed the documentation as recorded by the Scribe River Garcia All medical record entries made by the Scribe were at my direction and personally dictated by me. I have reviewed the chart and agree that the record accurately reflects my personal performance of the history, physical exam, medical decision making, and the department course for this patient. I have also personally directed, reviewed, and agree with the discharge instructions and disposition. <Shaun Jose - Last Filed: 11/28/18 00:36> Physician Patient Turnover Patient Signed Over To: Alina Estrada Handoff Comments: f/u Detox w/u and follow Crisis Recommendations <Shaun Jose - Last Filed: 11/28/18 00:36> Decision To Admit <Shaun Jose - Last Filed: 11/28/18 00:36> - Pt Status Changed To: Hospital Disposition Of: Inpatient - Admit Certification Admit to Inpatient:: After my assessment, the patient will require hospitalization for at least two midnights. This is because of the severity of symptoms shown, intensity of services needed, and/or the medical risk in this patient being treated as an outpatient. - InPatient: Physician Admission Certification: I certify that this patient requires 2 or more midnights of care for the following reason:: After my assessment, the patient will require hospitalization for at least two midnights. This is because of the severity of symptoms shown, intensity of services needed, and/or the medical risk in this patient being treated as an outpatient. - . Bed Request Type: Detox Admitting Physician: Alex David <Alina Estrada - Last Filed: 11/28/18 02:23> - . Patient Diagnosis: Heroin abuse
[2018-11-27 23:56] LABS: ALB/GLOB RATIO 1.2 (1.0-2.1); ALBUMIN 4.2 g/dL (3.5-5.0); ALT/SGPT 27 U/L (21-72); AST/SGOT 29 U/L (17-59); BLOOD UREA NITROGEN 15 mg/dL (9-20); CALCIUM 9.4 mg/dl (8.6-10.4); GFR NON-AFRICAN AMERICAN > 60
[2018-11-28 00:01] LABS: BARBITURATES, UR NEGATIVE (NEGATIVE); BENZODIAZEPINES, UR NEGATIVE (NEGATIVE); OPIATES, UR NEGATIVE (NEGATIVE); PHENCYCLIDINE, UR NEGATIVE (NEGATIVE)
[2018-11-28] MEDS ORDERED: Aluminum Hydroxide/Magnesium Hydroxide Susp (30 mL) PO PRN (08:39)
--- NOTE | 2018-11-28 11:46 | PCM.PSYCH ---
Initial Psychiatric Evaluation - Initial Psychiatric Evaluation Type of Admission: Voluntary Legal Status: Capacity Chief Complaint (in patient's own words): I'm withdrawing History of Present Illness and Precipitating Events: Patient is a 23 year old single male with no children, living with his stepmother, employed in construction Patient reports a 2 month history of IV heroin abuse(10 bags/daily) following release from alf in September. He was incarcerated for 6 months for larceny, and had previously been smoking cocaine since age 20. Patient reports he picked up heroin following release from alf, and wants to stop. He began experiencing withdrawal symptoms at home causing him to miss work, and presented to ED requesting detox. Patient reports a good support system at home, and lives with his stepmother who encourages his sobriety. He reports anxiety but takes no medications. Patient has no prior psychiatric hospitalizations or rehab attempts, denies SI/HI. PsychHx: Anxiety PMHx: denies FamPsychHx: denies Current Medications: Active Medications Generic Name Dose Route Start Last Admin Trade Name Freq PRN Reason Stop Dose Admin Al Hydrox/Mg Hydrox/Simethicone 30 ml 11/28/18 08:39 Maalox 30 Ml PO TID PRN Indigestion / Heartburn Clonidine HCl 0.1 mg 11/28/18 08:39 Catapres PO Q4 PRN COWS Score More or Equal to 5 Dicyclomine HCl 10 mg 11/28/18 08:39 Bentyl PO Q6H PRN Cramps Hydroxyzine HCl 50 mg 11/28/18 08:39 Atarax PO Q6H PRN Anxiety Ibuprofen 600 mg 11/28/18 08:39 Motrin Tab PO Q6 PRN Pain, moderate (4-7) Loperamide HCl 2 mg 11/28/18 08:39 Imodium PO Q8 PRN Diarrhea Methadone HCl 20 mg 11/29/18 10:00 Methadone PO 12/03/18 09:59 Q24H RILEY Taper Methadone HCl 5 mg 11/28/18 17:00 Methadone PO 11/28/18 17:01 ONCE ONE Nicotine 1 patch 11/28/18 11:45 Nicoderm Cq TD DAILY RILEY Ondansetron HCl 4 mg 11/28/18 08:39 Zofran Tab PO Q8 PRN Nausea/Vomiting Trazodone HCl 100 mg 11/28/18 08:39 Desyrel PO HS PRN Insomnia Past Psychiatric History - Past Psychiatric History Previous Treatment History: None Pertinent Medical Hx (Current Medical&Sleep Prob, Allergies): Allergies Allergy/AdvReac Type Severity Reaction Status Date / Time No Known Allergies Allergy Verified 11/27/18 21:57 Cephalexin [Keflex] 500 mg PO QID #40 capsule 11/13/18 Sulfamethoxazole/Trimethoprim [Bactrim DS 800 mg-160 mg] 1 tab PO BID #20 tab 11/13/18 Review of Systems - Constitutional Constitutional: Chills, Sweats - Gastrointestinal Gastrointestinal: Cramping - Psychiatric Psychiatric: Abnormal Sleep Pattern, Anxiety. absent: Hallucinations, Homicidal Ideation, Suicidal Ideation Mental Status Examination - Personal Presentation Personal Presentation: Looks stated age - Affect Affect: Constricted - Motor Activity Motor Activity: Calm - Reliability in Providing Information Reliability in Providing Information: Good - Speech Speech: Organized, Coherent - Mood Mood: Neutral - Formal Thought Process Formal Thought Process: No Impairment - Cognitive Functions Orientation: Person, Place, Situation, Time Sensorium: Alert Attention/Concentration: Attentive Estimate of Intelligence: Average Judgement: Intact, as evidence by: Insight regarding need for hospitalization - Risk Risk: Withdrawal - Strength & Assets Inventory Strength & Assets Inventory: Family support, Employment history, Cooperative DSM 5 DX - DSM 5 DSM 5 Diagnosis: Opioid withdrawal Opioid use disorder, severe - Recommended/Plan of Treatment Treatment Recommendations and Plan of Treatment: Taper with Methadone PRN medications, Maalox, Bentyl, Clonidine, Atarax, Ibuprofen, Imodium, Zofran Trazodone HS All risks, benefits and treatment alternatives of medications discussed; patient understands and agrees Attend groups and activities Supportive therapy and psycho-education AL for abstinence CBT for relapse prevention Encourage MAT Refer to rehab or IOP, and self-help groups Teach healthy lifestyle methods(diet, exercise, meditation) Smoking cessation with Nicotine patch Discussed with Dr. Frankie Maguire, PGY-1 34 min Projected ELOS: 5 days - Smoking Cessation Smoking Cessation Initiated: Yes
--- NOTE | 2018-11-28 15:02 | PCM.BM ---
<AmbrocioLorena churchill Elvia - Last Filed: 11/28/18 15:00> Treatment Plan Problems - Problems identified on initial assessmt Defensive Coping Date Initiated: 11/28/18 Time Initiated: 08:00 Assessment reference: NA Status: Active Denial Date Initiated: 11/28/18 Time Initiated: 08:00 Assessment reference: NA Status: Active Low motivation to change Date Initiated: 11/28/18 Time Initiated: 08:00 Assessment reference: NA Status: Active Treatment assets and liabiliti Patient Assests: ADL independent Patient Liabilities: substance abuse - Milieu Protocol Maintain good personal hygiene: daily Encourage regular showers, daily Remind patient to perform daily oral care, daily Assist patient to perform ADL's Maintain personal safety: every shift Educate patient to report safety concerns to staff, every shift Monitor environment for contraband/sharps Medication safety: Monitor for expected outcome, potential side effects: every shift, Assess barriers to learning: every shift, Assess readiness for medication education: every shift Milieu Narrative: Taper with Methadone PRN medications, Maalox, Bentyl, Clonidine, Atarax, Ibuprofen, Imodium, Zofran Trazodone HS All risks, benefits and treatment alternatives of medications discussed; patient understands and agrees Attend groups and activities Supportive therapy and psycho-education MO for abstinence CBT for relapse prevention Encourage MAT Refer to rehab or IOP, and self-help groups Teach healthy lifestyle methods(diet, exercise, meditation) Smoking cessation with Nicotine patch Discussed with Dr. Frankie Maguire, PGY-1 34 min Discharge/Continuing Care - Treatment Team Participation Patient/Family/SO Statement: Taper with Methadone PRN medications, Maalox, Bentyl, Clonidine, Atarax, Ibuprofen, Imodium, Zofran Trazodone HS All risks, benefits and treatment alternatives of medications discussed; patient understands and agrees Attend groups and activities Supportive therapy and psycho-education MO for abstinence CBT for relapse prevention Encourage MAT Refer to rehab or IOP, and self-help groups Teach healthy lifestyle methods(diet, exercise, meditation) Smoking cessation with Nicotine patch Discussed with Dr. Frankie Maguire, PGY-1 34 min <Alex David - Last Filed: 11/28/18 18:27> - Diagnosis (1) Opioid use disorder, severe, dependence Status: Acute Interventions: 11/28/18 18:27 * Assess 7x/week regarding severity of withdrawal * Educate regarding risks, benefits, side effects and alternatives of medications * Use Motivational Interviewing for abstinence * Use CBT for relapse prevention * Medication management for withdrawal symptoms * Encourage medication assisted treatment *
--- NOTE | 2018-11-29 10:24 | PCM.PYCHPN ---
Psychiatric Progress Note - Psychiatric Progress Note Patient seen today, length of contact: 16 min Patient Chief Complaint: I'm withdrawing Problems Identified/Issues Discussed: Patient seen, chart reviewed and case discussed with staff Patient is compliant with all medications, reports no side effects Symptoms are improving and still needs additional time to stabilize Patient reports he is feeling tired and still having chills and sweats Patient was unable to attend groups yesterday but will start today Support and psycho-education provided After care discussed Medication Change: Yes Medical Record Reviewed: Yes Mental Status Examination - Cognitive Function Orientation: Person, Place, Situation, Time Memory: Intact Attention: WNL - Mood Mood: Neutral - Affect Affect: Constricted - Speech Speech: Appropriate - Formal Thought Process Formal Thought Process: No Impairment - Suicidal Ideation Suicidal Ideation: No - Homicidal Ideation Homicidal Ideation: No Goal/Treatment Plan - Goal/Treatment Plan Need for Continued Stay: Remain at risks for inpatient hospitalization, Discharge may exacerbated symptoms Progress Toward Problem(s) and Goals/Treatment Plan: Taper with Methadone PRN medications, Maalox, Bentyl, Clonidine, Atarax, Ibuprofen, Imodium, Zofran Trazodone HS All risks, benefits and treatment alternatives of medications discussed; patient understands and agrees Attend groups and activities Supportive therapy and psycho-education [place] for abstinence CBT for relapse prevention Encourage MAT Refer to rehab or IOP, and self-help groups Teach healthy lifestyle methods(diet, exercise, meditation) Smoking cessation with Nicotine patch Discussed with Dr. David -Tere Maguire, PGY-1 Estimated Date of D/C: 12/01/18 - Smoking Cessation Smoking Cessation Initiated: Yes
--- NOTE | 2018-11-30 11:58 | PCM.PYCHPN ---
Psychiatric Progress Note - Psychiatric Progress Note Patient seen today, length of contact: 16 min Medication Change: Yes Medical Record Reviewed: Yes Mental Status Examination - Cognitive Function Orientation: Person, Place, Situation, Time Memory: Intact Attention: WNL - Mood Mood: Neutral - Affect Affect: Constricted - Speech Speech: Appropriate - Formal Thought Process Formal Thought Process: No Impairment - Suicidal Ideation Suicidal Ideation: No - Homicidal Ideation Homicidal Ideation: No Goal/Treatment Plan - Goal/Treatment Plan Need for Continued Stay: Remain at risks for inpatient hospitalization, Discharge may exacerbated symptoms Estimated Date of D/C: 12/01/18
[2018-12-01 09:00] VITALS: BP 105/70; PULSE 74; RESP 18; TEMP 98; O2SAT 100
--- NOTE | 2018-12-01 20:57 | PCM.PYCHDC ---
Mental Status Examination - Mental Status Examination Orientation: Person, Place, Situation, Time Memory: Intact Mood: Neutral Affect: Broad Speech: Appropriate Attention: WNL Concentration: WNL Association: WNL Fund of Knowledge: WNL Formal Thought Process: No Impairment Description of patient's judgement and insight: Fair Psychotic Thoughts and Behaviors: Denies Suicidal Ideation: No Current Homicidal Ideation?: No Discharge Summary - Discharge Note Reason for Hospitalization: Heroin Detox Consultations:: List each consultation separately and include: 1. Reason for request. 2. Findings. 3. Follow-up Summary of Hospital Course include:: 1. Description of specific treatment plan utilized for patients during their course of treatmen. 2. Summarize the time- course for resolution of acute symptoms and/or regressed behaviors. 3. Describe issues identified and worked on during hospitalization. 4. Describe medication utilized. 5. Describe medical problems identified and treated. 6. Reassessment of suicide risk Summary of Hospital Course: The pt was admitted and started on treatment with psychotherapy, support, psychoeducation and medications. All the risks and benefits of medications are discussed and the patient understood and agreed. NV and CBT used. The pt attended groups and activities, as well as milieu therapy. The pt improved with the treatments provided. After care discussed with the patient. - Final Diagnosis (DSM 5) Condition upon Discharge: FAIR Disposition: HOME/ ROUTINE Follow-up Treatment Plan: Follow after care plan as discussed. Use relapse prevention skills Return to ER or call 911 if suicidal, homicidal or symptoms relapse. Stay away from stress, alcohol and drugs. See primary doctor regularly and get labs. - Antipsychotic Medications Pt discharged on 2 or more routine antipsychotic medications: No
== END 2018-12-01 09:25 | disposition home or self-care (01) | DRG 772 ==
LOC: C.ER 21:29 → SUPCPDRO 21:29 → C.7D 11-28 02:19
PROVIDERS: ADMIT Psychiatry & Neurology Psychiatry; ATTEND Psychiatry & Neurology Psychiatry
PROC: HZ2ZZZZ Detoxification Services for Substance Abuse Treatment (ICD-10-PCS; principal; 2018-11-28)
PROC: HZ59ZZZ Individual Psychotherapy for Substance Abuse Treatment, Supportive (ICD-10-PCS; 2018-11-28)
PROC: HZ46ZZZ Group Counseling for Substance Abuse Treatment, Psychoeducation (ICD-10-PCS; 2018-11-29)
DX: F11.23 Opioid dependence with withdrawal (principal); F41.9 Anxiety disorder, unspecified